=== PATIENT | male | born 1995 | race Caucasian/White ===

== ENCOUNTER 2019-10-14 01:29 | Emergency (ER) | payer SELFPAY ==
[~2019-10-14] VITALS: Ht 180.3 cm; Wt 54.4 kg
[2019-10-14] MEDS ORDERED: KETOROLAC 30 MG/ML VIAL IM ONE (01:35)
[2019-10-14 01:40] VITALS: BP 108/65
--- NOTE | 2019-10-14 01:40 | NUR ---
PT BIBA FROM STREET FOR NON SPECIFIC LOWER BACK AND RIGHT LEG PAIN. AMBULATES WITH UPRIGHT STEADY GAIT. NO TRAUMA OR DEFORMITY NOTED. POOR HYGIENE NOTED.
--- NOTE | 2019-10-14 01:50 | NUR ---
MEDICATED WITH 30 MG IM TORADOL FOR PAIN.
[2019-10-14 02:30] VITALS: BP 108/65
== END 2019-10-14 02:30 | disposition home or self-care (01) ==
LOC: MED 01:29
DX: M54.5 Low back pain (principal); M79.671 Pain in right foot
CPT/HCPCS: 96372; 99283; J1885